=== PATIENT | male | born 1960 | race African-American/Black ===

== ENCOUNTER 2017-01-30 23:24 | Inpatient (IN) | payer OTHER ==
[~2017-01-30] VITALS: Ht 180.3 cm; Wt 79.4 kg
[2017-01-30] MEDS ORDERED: ZOLOFT50 MG ORAL (23:34)
[2017-01-30] MEDS ORDERED: ABILIFY10 MG ORAL (23:34)
[2017-01-30] MEDS ORDERED: ABILIFY15 MG ORAL (23:37)
[2017-01-30] MEDS ORDERED: HYDROCHLOROTH12.5 M2 ORAL (23:37)
[2017-01-30] MEDS ORDERED: Famotidine 20 MG/ 2ML VIAL IVP ONE (23:45)
[2017-01-30] MEDS ORDERED: Morphine Sulfate 2mg/ml Inj IVP ONE (23:45)
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
[2017-01-31] VITALS (10 sets, daily range): BP systolic 108–145; BP diastolic 54–100
[2017-01-31] LABS: MEAN CORPUSCULAR HEMOGLOBIN 30.2 PG (27.0-31.0); MEAN CORPUSCULAR HGB CONC 33.8 G/DL (32.0-36.0); MEAN CORPUSCULAR VOLUME 89 FL (80-99); PLATELET COUNT 309 K/UL (150-450); RED BLOOD COUNT 4.61 M/UL (4.70-6.10); RED CELL DISTRIBUTION WIDTH 10.6 % (11.6-14.8); WHITE BLOOD COUNT 11.2 K/UL (4.8-10.8)
[2017-01-31 00:06] LABS: INR 0.9 (0.9-1.1); PROTHROMBIN TIME 9.6 SEC (9.30-11.50)
[2017-01-31 00:07] LABS: TROPONIN I < 0.30 ng/mL (<=0.30)
[2017-01-31 00:11] LABS: ALANINE AMINOTRANSFERASE 15 U/L (3-41); ALBUMIN/GLOBULIN RATIO 1.3 (1.0-2.7); ANION GAP 18 (5-15); ASPARTATE AMINO TRANSFERASE 24 U/L (5-40); CALCIUM 9.2 mg/dL (8.6-10.2); CARBON DIOXIDE 24 mEQ/L (20-30); CHLORIDE 98 mEQ/L (98-107); CREATININE 1.1 mg/dL (0.7-1.2); GLOMERULAR FILTRATION RATE > 60 mL/min (>60); HEMOLYSIS 1; LIPASE 28 U/L (< 60); POTASSIUM 3.6 mEQ/L (3.4-4.9); SODIUM 140 mEQ/L (135-145); TOTAL PROTEIN 7.9 g/dL (6.6-8.7)
[2017-01-31 01:00] LABS: APPEARANCE,URINE CLEAR; KETONES,URINE NEGATIVE (NEGATIVE); LEUKOCYTE ESTERASE ,URINE 1+ (NEGATIVE); NITRITE,URINE NEGATIVE (NEGATIVE); PH,URINE 6 (4.5-8.0); PROTEIN,URINE 1+ (NEGATIVE); UROBILINOGEN,URINE 1 MG/DL (0.0-1.0)
[2017-01-31 01:25] LABS: RBC,URINE 0-2 /HPF (0 - 0); SQUAMOUS EPITHELIAL CELL,UR FEW /LPF (NONE/OCC); WBC,URINE 0-2 /HPF (0 - 0)
[2017-01-31] MEDS ORDERED: Azithromycin 500 MG in D5W 275 ML IVPB ONE (03:45)
[2017-01-31] MEDS ORDERED: Ipratropium 0.02% Inh Soln 2.5ml UD HHN ONE (03:45)
[2017-01-31] MEDS ORDERED: cefTRIAXone 1 GM in NS 55 ML IVPB ONE (03:45)
[2017-01-31] MEDS ORDERED: Albuterol ud Inhalation HHN ONE (03:45)
[2017-01-31] MEDS ORDERED: Ketorolac 30mg Inj IV ONE (04:00)
[2017-01-31] MEDS ORDERED: Azithromycin Inj IV ONE (04:47)
[2017-01-31] MEDS ORDERED: Norco 5mg/325mg tab ORAL PRN (11:00)
[2017-01-31] MEDS ORDERED: LORazepam 1mg tab ORAL PRN (11:00)
[2017-01-31] MEDS ORDERED: Acetaminophen 650 MG SUPP RECTAL PRN (11:00)
--- NOTE | 2017-01-31 11:42 | Diagnostic Imaging Report ---
Indication: Chest Pain Comparison: None A single view chest radiograph was obtained. Findings: No definite infiltrate or pulmonary vascular congestion identified. The heart is enlarged. The aorta is mildly enlarged consistent with atherosclerotic vascular disease. The bones are osteopenic. Impression: No acute disease
--- NOTE | 2017-01-31 11:42 | Diagnostic Imaging Report ---
Indication: Abdominal pain Comparison: None Single view of the abdomen obtained Findings: Bowel gas pattern is nonspecific. No mass, ectopic calcifications, or abnormal gas collections are identified. The bones are unremarkable. Impression: No acute findings
[2017-01-31] MEDS: Sertraline 50mg tab ORAL SCH (12:32)
--- NOTE | 2017-01-31 12:37 | Infectious Diseases Prog Note ---
Subjective Allergies: Coded Allergies: PENICILLINS (Verified Allergy, Unknown, 01/30/17) Objective Vital Signs Last 24 Hour Vital Signs Date Time Temp Pulse Resp B/P Pulse Ox O2 Delivery O2 Flow Rate FiO2 01/31/17 08:54 98.3 86 20 111/62 97 Room Air 01/31/17 08:00 98.3 86 20 111/62 97 Room Air 01/31/17 06:59 99.3 99 28 108/59 94 Room Air 01/31/17 06:22 99.3 99 28 108/59 94 Room Air 01/31/17 04:58 112 24 Room Air 01/31/17 04:55 102.5 112 28 129/54 94 Room Air 01/31/17 04:30 98.6 01/31/17 04:10 105 20 100 Room Air 01/31/17 04:00 99.8 112 28 142/66 97 Room Air 01/31/17 03:50 104 20 Room Air 01/31/17 03:50 104 20 100 Room Air 01/31/17 01:40 98.6 108 22 144/73 96 Room Air 01/31/17 00:20 98.6 01/31/17 00:19 98.6 116 22 126/72 92 Room Air 01/30/17 23:28 98.6 124 18 130/77 96 Room Air Height (Feet): 5 Height (Inches): 11.00 Weight (Pounds): 175 Laboratory Tests Test 01/30/17 23:39 01/31/17 00:30 01/31/17 04:03 White Blood Count 11.2 K/UL (4.8-10.8) H Red Blood Count 4.61 M/UL (4.70-6.10) L Hemoglobin 13.9 G/DL (14.2-18.0) L Hematocrit 41.2 % (42.0-52.0) L Mean Corpuscular Volume 89 FL (80-99) Mean Corpuscular Hemoglobin 30.2 PG (27.0-31.0) Mean Corpuscular Hemoglobin Concent 33.8 G/DL (32.0-36.0) Red Cell Distribution Width 10.6 % (11.6-14.8) L Platelet Count 309 K/UL (150-450) Mean Platelet Volume 6.0 FL (6.5-10.1) L Neutrophils (%) (Auto) % (45.0-75.0) Lymphocytes (%) (Auto) % (20.0-45.0) Monocytes (%) (Auto) % (1.0-10.0) Eosinophils (%) (Auto) % (0.0-3.0) Basophils (%) (Auto) % (0.0-2.0) Prothrombin Time 9.6 SEC (9.30-11.50) Prothromb Time International Ratio 0.9 (0.9-1.1) Activated Partial Thromboplast Time 27 SEC (23-33) Sodium Level 140 mEQ/L (135-145) Potassium Level 3.6 mEQ/L (3.4-4.9) Chloride Level 98 mEQ/L (98-107) Carbon Dioxide Level 24 mEQ/L (20-30) Anion Gap 18 (5-15) H Blood Urea Nitrogen 15 mg/dL (7-23) Creatinine 1.1 mg/dL (0.7-1.2) Estimat Glomerular Filtration Rate > 60 mL/min (>60) Glucose Level 111 mg/dL (74-106) H Calcium Level 9.2 mg/dL (8.6-10.2) Total Bilirubin 0.8 mg/dL (0.0-1.2) Aspartate Amino Transf (AST/SGOT) 24 U/L (5-40) Alanine Aminotransferase (ALT/SGPT) 15 U/L (3-41) Alkaline Phosphatase 75 U/L (40-129) Troponin I < 0.30 ng/mL (<=0.30) Total Protein 7.9 g/dL (6.6-8.7) Albumin 4.5 g/dL (3.5-5.2) Globulin 3.4 g/dL Albumin/Globulin Ratio 1.3 (1.0-2.7) Lipase 28 U/L (< 60) Serum Alcohol 62 mg/dL Urine Color Yellow Urine Appearance Clear Urine pH 6 (4.5-8.0) Urine Specific [place] 1.010 (1.005-1.035) Urine Protein 1+ (NEGATIVE) H Urine Glucose (UA) Negative (NEGATIVE) Urine Ketones Negative (NEGATIVE) Urine Occult Blood 2+ (NEGATIVE) H Urine Nitrite Negative (NEGATIVE) Urine Bilirubin Negative (NEGATIVE) Urine Urobilinogen 1 MG/DL (0.0-1.0) H Urine Leukocyte Esterase 1+ (NEGATIVE) H Urine RBC 0-2 /HPF (0 - 0) H Urine WBC 0-2 /HPF (0 - 0) Urine Squamous Epithelial Cells Few /LPF (NONE/OCC) Urine Bacteria None /HPF (NONE) Lactic Acid Level 1.50 mmol/L (0.66-2.22) Current Medications Medications (Trade) Dose Ordered Sig/Pedro Luis Route PRN Reason Start Time Stop Time Status Last Admin Dose Admin Acetaminophen (Tylenol) 650 mg Q4H PRN RECTAL T>100.5 01/31/17 11:00 03/02/17 10:59 Acetaminophen/ Hydrocodone Bitart 1 tab 1 tab Q4H PRN ORAL Moderate Pain (Pain Scale 4-6) 01/31/17 11:00 02/07/17 10:59 Albuterol/ Ipratropium (DuoNeb 0.5-3(2.5)mg/3ml) 3 ml Q4H PRN HHN Shortness of Breath 01/31/17 11:00 02/05/17 10:59 Aripiprazole (Abilify) 15 mg DAILY ORAL 01/31/17 12:00 03/02/17 11:59 Azithromycin/ Dextrose (Zithromax/D5W) 275 ml @ 275 mls/hr Q24HRS IV 02/01/17 06:00 02/07/17 06:59 Ceftriaxone Sodium 1 gm/ Dextrose 55 ml @ 110 mls/hr Q24H IVPB 02/01/17 06:00 02/08/17 05:59 Dextrose (Dextrose 50%) STAT PRN IV Hypoglycemia 01/31/17 11:00 03/02/17 10:59 Heparin Sodium (Porcine) (Heparin 5000 units/ml) 5,000 units EVERY 12 HOURS SUBQ 01/31/17 21:00 03/02/17 20:59 Hydrochlorothiazide (Hydrodiuril) 12.5 mg DAILY ORAL 01/31/17 11:00 03/02/17 10:59 01/31/17 12:32 Lorazepam (Ativan) 1 mg Q4H PRN ORAL For Anxiety 01/31/17 11:00 02/07/17 10:59 Morphine Sulfate (Morphine Sulfate) 2 mg Q4H PRN IVP Severe Pain (Pain Scale 7-10) 01/31/17 11:00 02/07/17 10:59 Ondansetron HCl (Zofran) 4 mg Q6H PRN IVP Nausea & Vomiting 01/31/17 11:00 03/02/17 10:59 Sertraline HCl (Zoloft) 50 mg DAILY ORAL 01/31/17 11:00 03/02/17 10:59 01/31/17 12:32 Iliana Drake M.D. Jan 31, 2017 12:37
--- NOTE | 2017-01-31 13:40 | Infectious Diseases Prog Note ---
Assessment/Plan Problems: (1) CAP (community acquired pneumonia) Assessment & Plan: continue ceftriaxon and zithromax, send sputum culture, monitor CXR, avoid smoking (2) UTI (urinary tract infection) Assessment & Plan: on ceftriaxon, send urine culture (3) Vomiting Assessment & Plan: colitis VS gastroenteritis, continue supportive care, and anti nausea meds (4) Abdominal pain Assessment & Plan: consult GI, consider CT abdomen to rule out acute pathology (5) COPD (chronic obstructive pulmonary disease) with acute bronchitis Assessment & Plan: due to chronic smoking, recommend smoking cessation and nebulizer treatment , and PFT as an outpatient Subjective Allergies: Coded Allergies: PENICILLINS (Verified Allergy, Unknown, 01/30/17) Objective Vital Signs Last 24 Hour Vital Signs Date Time Temp Pulse Resp B/P Pulse Ox O2 Delivery O2 Flow Rate FiO2 01/31/17 08:54 98.3 86 20 111/62 97 Room Air 01/31/17 08:00 98.3 86 20 111/62 97 Room Air 01/31/17 06:59 99.3 99 28 108/59 94 Room Air 01/31/17 06:22 99.3 99 28 108/59 94 Room Air 01/31/17 04:58 112 24 Room Air 01/31/17 04:55 102.5 112 28 129/54 94 Room Air 01/31/17 04:30 98.6 01/31/17 04:10 105 20 100 Room Air 01/31/17 04:00 99.8 112 28 142/66 97 Room Air 01/31/17 03:50 104 20 Room Air 01/31/17 03:50 104 20 100 Room Air 01/31/17 01:40 98.6 108 22 144/73 96 Room Air 01/31/17 00:20 98.6 01/31/17 00:19 98.6 116 22 126/72 92 Room Air 01/30/17 23:28 98.6 124 18 130/77 96 Room Air Height (Feet): 5 Height (Inches): 11.00 Weight (Pounds): 175 Laboratory Tests Test 01/30/17 23:39 01/31/17 00:30 01/31/17 04:03 White Blood Count 11.2 K/UL (4.8-10.8) H Red Blood Count 4.61 M/UL (4.70-6.10) L Hemoglobin 13.9 G/DL (14.2-18.0) L Hematocrit 41.2 % (42.0-52.0) L Mean Corpuscular Volume 89 FL (80-99) Mean Corpuscular Hemoglobin 30.2 PG (27.0-31.0) Mean Corpuscular Hemoglobin Concent 33.8 G/DL (32.0-36.0) Red Cell Distribution Width 10.6 % (11.6-14.8) L Platelet Count 309 K/UL (150-450) Mean Platelet Volume 6.0 FL (6.5-10.1) L Neutrophils (%) (Auto) % (45.0-75.0) Lymphocytes (%) (Auto) % (20.0-45.0) Monocytes (%) (Auto) % (1.0-10.0) Eosinophils (%) (Auto) % (0.0-3.0) Basophils (%) (Auto) % (0.0-2.0) Prothrombin Time 9.6 SEC (9.30-11.50) Prothromb Time International Ratio 0.9 (0.9-1.1) Activated Partial Thromboplast Time 27 SEC (23-33) Sodium Level 140 mEQ/L (135-145) Potassium Level 3.6 mEQ/L (3.4-4.9) Chloride Level 98 mEQ/L (98-107) Carbon Dioxide Level 24 mEQ/L (20-30) Anion Gap 18 (5-15) H Blood Urea Nitrogen 15 mg/dL (7-23) Creatinine 1.1 mg/dL (0.7-1.2) Estimat Glomerular Filtration Rate > 60 mL/min (>60) Glucose Level 111 mg/dL (74-106) H Calcium Level 9.2 mg/dL (8.6-10.2) Total Bilirubin 0.8 mg/dL (0.0-1.2) Aspartate Amino Transf (AST/SGOT) 24 U/L (5-40) Alanine Aminotransferase (ALT/SGPT) 15 U/L (3-41) Alkaline Phosphatase 75 U/L (40-129) Troponin I < 0.30 ng/mL (<=0.30) Total Protein 7.9 g/dL (6.6-8.7) Albumin 4.5 g/dL (3.5-5.2) Globulin 3.4 g/dL Albumin/Globulin Ratio 1.3 (1.0-2.7) Lipase 28 U/L (< 60) Serum Alcohol 62 mg/dL Urine Color Yellow Urine Appearance Clear Urine pH 6 (4.5-8.0) Urine Specific [place] 1.010 (1.005-1.035) Urine Protein 1+ (NEGATIVE) H Urine Glucose (UA) Negative (NEGATIVE) Urine Ketones Negative (NEGATIVE) Urine Occult Blood 2+ (NEGATIVE) H Urine Nitrite Negative (NEGATIVE) Urine Bilirubin Negative (NEGATIVE) Urine Urobilinogen 1 MG/DL (0.0-1.0) H Urine Leukocyte Esterase 1+ (NEGATIVE) H Urine RBC 0-2 /HPF (0 - 0) H Urine WBC 0-2 /HPF (0 - 0) Urine Squamous Epithelial Cells Few /LPF (NONE/OCC) Urine Bacteria None /HPF (NONE) Lactic Acid Level 1.50 mmol/L (0.66-2.22) Current Medications Medications (Trade) Dose Ordered Sig/Pedro Luis Route PRN Reason Start Time Stop Time Status Last Admin Dose Admin Acetaminophen (Tylenol) 650 mg Q4H PRN RECTAL T>100.5 01/31/17 11:00 03/02/17 10:59 Acetaminophen/ Hydrocodone Bitart 1 tab 1 tab Q4H PRN ORAL Moderate Pain (Pain Scale 4-6) 01/31/17 11:00 02/07/17 10:59 Albuterol/ Ipratropium (DuoNeb 0.5-3(2.5)mg/3ml) 3 ml Q4H PRN HHN Shortness of Breath 01/31/17 11:00 02/05/17 10:59 Aripiprazole (Abilify) 15 mg DAILY ORAL 01/31/17 12:00 03/02/17 11:59 Azithromycin/ Dextrose (Zithromax/D5W) 275 ml @ 275 mls/hr Q24HRS IV 02/01/17 06:00 02/07/17 06:59 Ceftriaxone Sodium 1 gm/ Dextrose 55 ml @ 110 mls/hr Q24H IVPB 02/01/17 06:00 02/08/17 05:59 Dextrose (Dextrose 50%) STAT PRN IV Hypoglycemia 01/31/17 11:00 03/02/17 10:59 Heparin Sodium (Porcine) (Heparin 5000 units/ml) 5,000 units EVERY 12 HOURS SUBQ 01/31/17 21:00 03/02/17 20:59 Hydrochlorothiazide (Hydrodiuril) 12.5 mg DAILY ORAL 01/31/17 11:00 03/02/17 10:59 01/31/17 12:32 Lorazepam (Ativan) 1 mg Q4H PRN ORAL For Anxiety 01/31/17 11:00 02/07/17 10:59 Metronidazole (Flagyl) 500 mg Q8HR ORAL 01/31/17 14:00 02/07/17 13:59 Morphine Sulfate (Morphine Sulfate) 2 mg Q4H PRN IVP Severe Pain (Pain Scale 7-10) 01/31/17 11:00 02/07/17 10:59 Ondansetron HCl (Zofran) 4 mg Q6H PRN IVP Nausea & Vomiting 01/31/17 11:00 03/02/17 10:59 Sertraline HCl (Zoloft) 50 mg DAILY ORAL 01/31/17 11:00 03/02/17 10:59 01/31/17 12:32 Iliana Drake M.D. Jan 31, 2017 13:40
[2017-01-31] MEDS ORDERED: metroNIDAZOLE 500mg tab ORAL SCH (14:00)
--- NOTE | 2017-01-31 19:58 | Consultation ---
DATE OF CONSULTATION: 01/31/2017 CONSULTING PHYSICIAN: Jonny Lovelace M.D. HISTORY OF PRESENT ILLNESS: This is a 56-year-old male, who came to the hospital with nausea and vomiting. He states that he has been having chest pain and chest congestion. He also reports a cough. Denies any fevers or chills. He was seen and was worked up in the hospital. ALLERGIES: Penicillin. PAST MEDICAL HISTORY: Hypertension and PTSD. REVIEW OF SYSTEMS: Denies any headaches, hematemesis, melena, hematochezia, night sweats, or weight loss. PHYSICAL EXAMINATION: GENERAL: Examination reveals a 56-year-old male. VITAL SIGNS: Blood pressure 110/60, heart rate 84, respiratory rate 20, he is afebrile, and O2 saturation 98% on room air. HEENT: Unremarkable. CHEST: Clear breath sounds bilaterally. ABDOMEN: Soft. NEUROLOGIC: Nonfocal. LABORATORY DATA: White count 11.2, hemoglobin 13. Chemistries are normal. Glucose 111. Coags are negative. Urinalysis shows few WBC. Toxicology is notable for elevated serum alcohol. X-ray of chest per ER physician report is unremarkable. I have reviewed the x-ray myself and I find no evidence of any acute pathology. IMPRESSION: 1. Alcohol intoxication. 2. Emesis, likely secondary to gastritis. 3. No acute respiratory issues. DISCUSSION: The patient is seen and evaluated. At this time, he is doing well from medical standpoint. Respiratory status is stable. We will continue to follow as needed. Thank you for consultation. Jonny Lovelace M.D. DR: ROBERT JOB#: [id number] CC:
--- NOTE | 2017-01-31 20:30 | History and Physical ---
History of Present Illness General Date patient seen: Jan 31, 2017 Reason for Hospitalization: Abdominal Pain Present Illness HPI 56 y/o with PMH for psychiatric disorder and HTN who presented to the ED c/o shortness of breath for 4-5 days. He also c/o associated nonproductive cough, chills, and vomiting. No other sick contacts at home and no recent travel. In the ED, CXR was suspicious for RML infiltrate and was admitted for pneumonia. Allergies: Coded Allergies: PENICILLINS (Verified Allergy, Unknown, 01/30/17) Medication History Scheduled Aripiprazole* (Abilify*), 15 MG ORAL DAILY, (Reported) Hydrochlorothiazide* (Hydrochlorothiazide*), 12.5 MG ORAL DAILY, (Reported) Sertraline Hcl* (Zoloft*), 50 MG ORAL DAILY, (Reported) Patient History History Provided By: Patient Healthcare decision maker Resuscitation status Advanced Directive on File Past Medical/Surgical History Past Medical/Surgical History: (1) HTN (hypertension) (2) Psychiatric disorder Social History Social History: (1) Smoker Review of Systems All Other Systems: negative except mentioned in HPI Physical Exam General Appearance: WD/WN, no apparent distress HEENT: normocephalic, atraumatic Neck: supple Respiratory/Chest: decreased breath sounds, expiratory wheezing Cardiovascular/Chest: normal rate, regular rhythm Abdomen: non tender, soft Extremities: no edema Neurologic: alert, oriented x 3 Last 24 Hour Vital Signs Date Time Temp Pulse Resp B/P Pulse Ox O2 Delivery O2 Flow Rate FiO2 01/31/17 12:00 98.4 89 19 117/70 98 Room Air 01/31/17 08:54 98.3 86 20 111/62 97 Room Air 01/31/17 08:00 98.3 86 20 111/62 97 Room Air 01/31/17 06:59 99.3 99 28 108/59 94 Room Air 01/31/17 06:22 99.3 99 28 108/59 94 Room Air 01/31/17 04:58 112 24 Room Air 01/31/17 04:55 102.5 112 28 129/54 94 Room Air 01/31/17 04:30 98.6 01/31/17 04:10 105 20 100 Room Air 01/31/17 04:00 99.8 112 28 142/66 97 Room Air 01/31/17 03:50 104 20 Room Air 01/31/17 03:50 104 20 100 Room Air 01/31/17 01:40 98.6 108 22 144/73 96 Room Air 01/31/17 00:20 98.6 01/31/17 00:19 98.6 116 22 126/72 92 Room Air 01/30/17 23:28 98.6 124 18 130/77 96 Room Air Intake and Output 01/30/17 01/31/17 19:00 07:00 Intake Total 1330 ml Output Total 200 ml Balance 1130 ml Intake Oral 0 ml IV Total 1330 ml Output Urine Total 200 ml Laboratory Tests Test 01/30/17 23:39 01/31/17 00:30 01/31/17 04:03 White Blood Count 11.2 K/UL (4.8-10.8) H Red Blood Count 4.61 M/UL (4.70-6.10) L Hemoglobin 13.9 G/DL (14.2-18.0) L Hematocrit 41.2 % (42.0-52.0) L Mean Corpuscular Volume 89 FL (80-99) Mean Corpuscular Hemoglobin 30.2 PG (27.0-31.0) Mean Corpuscular Hemoglobin Concent 33.8 G/DL (32.0-36.0) Red Cell Distribution Width 10.6 % (11.6-14.8) L Platelet Count 309 K/UL (150-450) Mean Platelet Volume 6.0 FL (6.5-10.1) L Neutrophils (%) (Auto) % (45.0-75.0) Lymphocytes (%) (Auto) % (20.0-45.0) Monocytes (%) (Auto) % (1.0-10.0) Eosinophils (%) (Auto) % (0.0-3.0) Basophils (%) (Auto) % (0.0-2.0) Prothrombin Time 9.6 SEC (9.30-11.50) Prothromb Time International Ratio 0.9 (0.9-1.1) Activated Partial Thromboplast Time 27 SEC (23-33) Sodium Level 140 mEQ/L (135-145) Potassium Level 3.6 mEQ/L (3.4-4.9) Chloride Level 98 mEQ/L (98-107) Carbon Dioxide Level 24 mEQ/L (20-30) Anion Gap 18 (5-15) H Blood Urea Nitrogen 15 mg/dL (7-23) Creatinine 1.1 mg/dL (0.7-1.2) Estimat Glomerular Filtration Rate > 60 mL/min (>60) Glucose Level 111 mg/dL (74-106) H Calcium Level 9.2 mg/dL (8.6-10.2) Total Bilirubin 0.8 mg/dL (0.0-1.2) Aspartate Amino Transf (AST/SGOT) 24 U/L (5-40) Alanine Aminotransferase (ALT/SGPT) 15 U/L (3-41) Alkaline Phosphatase 75 U/L (40-129) Troponin I < 0.30 ng/mL (<=0.30) Total Protein 7.9 g/dL (6.6-8.7) Albumin 4.5 g/dL (3.5-5.2) Globulin 3.4 g/dL Albumin/Globulin Ratio 1.3 (1.0-2.7) Lipase 28 U/L (< 60) Serum Alcohol 62 mg/dL Urine Color Yellow Urine Appearance Clear Urine pH 6 (4.5-8.0) Urine Specific [place] 1.010 (1.005-1.035) Urine Protein 1+ (NEGATIVE) H Urine Glucose (UA) Negative (NEGATIVE) Urine Ketones Negative (NEGATIVE) Urine Occult Blood 2+ (NEGATIVE) H Urine Nitrite Negative (NEGATIVE) Urine Bilirubin Negative (NEGATIVE) Urine Urobilinogen 1 MG/DL (0.0-1.0) H Urine Leukocyte Esterase 1+ (NEGATIVE) H Urine RBC 0-2 /HPF (0 - 0) H Urine WBC 0-2 /HPF (0 - 0) Urine Squamous Epithelial Cells Few /LPF (NONE/OCC) Urine Bacteria None /HPF (NONE) Lactic Acid Level 1.50 mmol/L (0.66-2.22) Height (Feet): 5 Height (Inches): 11.00 Weight (Pounds): 175 Medications Current Medications Medications (Trade) Dose Ordered Sig/Pedro Luis Route PRN Reason Start Time Stop Time Status Last Admin Dose Admin Acetaminophen (Tylenol) 650 mg Q4H PRN RECTAL T>100.5 01/31/17 11:00 03/02/17 10:59 Acetaminophen/ Hydrocodone Bitart 1 tab 1 tab Q4H PRN ORAL Moderate Pain (Pain Scale 4-6) 01/31/17 11:00 02/07/17 10:59 Albuterol/ Ipratropium (DuoNeb 0.5-3(2.5)mg/3ml) 3 ml Q4H PRN HHN Shortness of Breath 01/31/17 11:00 02/05/17 10:59 Aripiprazole (Abilify) 15 mg DAILY ORAL 01/31/17 12:00 03/02/17 11:59 01/31/17 13:50 Azithromycin/ Dextrose (Zithromax/D5W) 275 ml @ 275 mls/hr Q24HRS IV 02/01/17 06:00 02/07/17 06:59 Ceftriaxone Sodium 1 gm/ Dextrose 55 ml @ 110 mls/hr Q24H IVPB 02/01/17 06:00 02/08/17 05:59 Dextrose (Dextrose 50%) STAT PRN IV Hypoglycemia 01/31/17 11:00 03/02/17 10:59 Heparin Sodium (Porcine) (Heparin 5000 units/ml) 5,000 units EVERY 12 HOURS SUBQ 01/31/17 21:00 03/02/17 20:59 Hydrochlorothiazide (Hydrodiuril) 12.5 mg DAILY ORAL 01/31/17 11:00 03/02/17 10:59 01/31/17 12:32 Lorazepam (Ativan) 1 mg Q4H PRN ORAL For Anxiety 01/31/17 11:00 02/07/17 10:59 Morphine Sulfate (Morphine Sulfate) 2 mg Q4H PRN IVP Severe Pain (Pain Scale 7-10) 01/31/17 11:00 02/07/17 10:59 Ondansetron HCl (Zofran) 4 mg Q6H PRN IVP Nausea & Vomiting 01/31/17 11:00 03/02/17 10:59 Sertraline HCl (Zoloft) 50 mg DAILY ORAL 01/31/17 11:00 03/02/17 10:59 01/31/17 12:32 Assessment/Plan Problem List: (1) COPD (chronic obstructive pulmonary disease) with acute bronchitis ICD Codes: J44.0 - Chronic obstructive pulmonary disease with acute lower respiratory infection SNOMED: 301896378081560 (2) Vomiting ICD Codes: R11.10 - Vomiting, unspecified SNOMED: 236289067 (3) Abdominal pain ICD Codes: R10.9 - Unspecified abdominal pain SNOMED: 83900726 (4) HTN (hypertension) ICD Codes: I10 - Essential (primary) hypertension SNOMED: 48304414 (5) Psychiatric disorder ICD Codes: F99 - Mental disorder, not otherwise specified SNOMED: 87154029, [id number] Assessment/Plan Dr. Adams called for pulmonary. Dr. Drake for ID. Empiric abx with azithro and rocephin. [facility] prn. Resume home meds. D/w Dr. Yusuf. CHRISTIANO SOSA Jan 31, 2017 20:30
--- NOTE | 2017-01-31 20:58 | Consultation ---
DATE OF CONSULTATION: 01/31/2017 INFECTIOUS DISEASES CONSULTATION CONSULTING PHYSICIAN: Iliana Drake M.D. REQUESTING PHYSICIAN: Meet Yusuf M.D. REASON FOR CONSULTATION: Pneumonia. Recommendation for antibiotics therapy with allergy to penicillin. HISTORY OF PRESENT ILLNESS: The patient is a 56-year-old male with past medical history of hypertension and posttraumatic stress disorder, who was brought into the hospital for cough productive of brownish phlegm for the last three days. The patient had fever and chills. Denied any recent travel or sick contacts. He had nausea and vomited for couple of times. Denied any diarrhea or blood in the stool. The patient had temperature of 98.6 with a white count of 11.2, in the emergency room. Chest x-ray showed no acute pathology. The patient was admitted to the hospital and started on ceftriaxone and Zithromax. I was consulted by the primary provider for antibiotics recommendation. PAST MEDICAL HISTORY: Significant for hypertension and posttraumatic stress disorder. PAST SURGICAL HISTORY: Negative. MEDICATIONS: He is on ceftriaxone and azithromycin. For the rest of his medications please refer to MAR. SOCIAL HISTORY: He is unemployed. He lives with his . He smoked tobacco for 10 years, half packet per day. No alcohol or drugs. FAMILY HISTORY: Negative for recurrent infection or immunocompromised condition. REVIEW OF SYSTEMS: A 12-point of system reviewed were all negative apart from the one I mentioned above in my History and Physical. PHYSICAL EXAMINATION: VITAL SIGNS: Temperature of 98.3 degrees, pulse 86, respirations 20, blood pressure 111/62, and pulse oximetry 97% on room air. GENERAL: The patient is a middle-aged male, up in bed, coughing and wheezing, not in acute distress. HEENT: Normocephalic and atraumatic. Pupils are reactive to light. Moist oral mucosa. No exudate. NECK: Supple. No lymphadenopathy. CARDIOVASCULAR: Regular rate and rhythm. No murmur. LUNGS: He had crackles and wheezing on both sides of his lungs with diminished breathing sounds. ABDOMEN: Soft, nontender, and nondistended. EXTREMITIES: No edema or cyanosis. LABORATORY DATA: White count of 11.2, hemoglobin 13.9, and platelet count of 309,000. BUN of 15 and creatinine of 1.1. AST of 24 and ALT of 15. Urinalysis showed +1 leukocyte esterase and WBCs 0 to 2. IMAGING STUDIES: Chest x-ray showed no acute disease. Abdominal x-ray showed no acute disease. ASSESSMENT AND PLAN: 1. Community-acquired pneumonia. The patient will be continued on ceftriaxone and Zithromax. At this point, we will monitor chest x-ray and send sputum for culture. 2. Urinary tract infection. The patient is already on ceftriaxone. We will send urine culture. 3. Vomiting suspect due to #1, improved. Continue supportive care and nausea medicine. 4. Chronic obstructive pulmonary disease suspect due to chronic smoking with acute exacerbation. Recommend nebulizer treatment and pulmonary function test as an outpatient. 5. Abdominal pain suspect muscle strain due to recurrent cough. Continue pain management. Consider CT abdomen, if no improvement. Iliana Drake M.D. DR: WARD JOB#: [id number] CC:
[2017-01-31] MEDS: DuoNeb 0.5-3(2.5)mg/3ml neb HHN PRN (21:09)
[2017-01-31] MEDS: Heparin 5000 units/ml inj SUBQ SCH (22:09)
[2017-01-31] MEDS: Morphine Sulfate 2mg/ml Inj IVP PRN (22:10)
[2017-02-01] VITALS: BP 129/74
[2017-02-01] MEDS: Azithromycin 250 MG in D5W 275 ML IV SCH (06:18)
[2017-02-01] MEDS: cefTRIAXone 1 GM in D5W 55 ML IVPB SCH (06:18)
[2017-02-01 08:00] VITALS: BP 121/77
[2017-02-01 08:09] LABS: BASOPHILS % (AUTO) 0.6 % (0.0-2.0); EOSINOPHILS % (AUTO) 2.8 % (0.0-3.0); LYMPHOCYTES % (AUTO) 16.7 % (20.0-45.0); MEAN CORPUSCULAR HEMOGLOBIN 29.8 PG (27.0-31.0); MEAN CORPUSCULAR HGB CONC 33.1 G/DL (32.0-36.0); MEAN CORPUSCULAR VOLUME 90 FL (80-99); MEAN PLATELET VOLUME 6.1 FL (6.5-10.1); MONOCYTES % (AUTO) 6.5 % (1.0-10.0); NEUTROPHILS % (AUTO) 73.4 % (45.0-75.0); PLATELET COUNT 304 K/UL (150-450); RED BLOOD COUNT 4.33 M/UL (4.70-6.10); RED CELL DISTRIBUTION WIDTH 11.2 % (11.6-14.8); WHITE BLOOD COUNT 9.6 K/UL (4.8-10.8)
[2017-02-01 08:11] LABS: ANION GAP 12 (5-15); CALCIUM 8.6 mg/dL (8.6-10.2); CARBON DIOXIDE 25 mEQ/L (20-30); CHLORIDE 101 mEQ/L (98-107); CREATININE 0.8 mg/dL (0.7-1.2); GLOMERULAR FILTRATION RATE > 60 mL/min (>60); HEMOLYSIS 4; POTASSIUM 3.7 mEQ/L (3.4-4.9); SODIUM 138 mEQ/L (135-145)
[2017-02-01] MEDS: Sertraline 50mg tab ORAL SCH (08:22)
[2017-02-01] MEDS: Heparin 5000 units/ml inj SUBQ SCH ×2 (08:31→21:12)
[2017-02-01 12:00] VITALS: BP 127/92
[2017-02-01] MEDS: DuoNeb 0.5-3(2.5)mg/3ml neb HHN PRN (16:07)
[2017-02-01 16:26] VITALS: BP 134/88
[2017-02-01 20:00] VITALS: BP 125/79
--- NOTE | 2017-02-01 20:23 | Nephrology Progress Note ---
Assessment/Plan Problem List: (1) COPD (chronic obstructive pulmonary disease) with acute bronchitis (2) Psychiatric disorder (3) HTN (hypertension) (4) Abdominal pain (5) Vomiting Assessment: resolved. Plan d/c plan for am if stable. cont abx and neb tx. pulm and ID following. Subjective Subjective sob better. Objective Objective Last 24 Hour Vital Signs Date Time Temp Pulse Resp B/P Pulse Ox O2 Delivery O2 Flow Rate FiO2 02/01/17 16:26 97.9 79 18 134/88 98 Room Air 02/01/17 16:17 105 20 100 Room Air 02/01/17 16:07 91 18 98 Room Air 21 02/01/17 12:00 97.5 87 18 127/92 98 Room Air 02/01/17 08:00 97.9 74 18 121/77 100 Room Air 02/01/17 07:35 83 18 Room Air 21 02/01/17 00:00 98.1 81 19 129/74 98 Room Air 01/31/17 22:40 98.4 01/31/17 21:06 91 18 98 Room Air 21 01/31/17 20:45 86 18 Room Air 21 Intake and Output 01/31/17 02/01/17 19:00 07:00 Intake Total 360 ml 240 ml Output Total 350 ml Balance 360 ml -110 ml Intake Oral 360 ml 240 ml Output Urine Total 350 ml # Voids 2 Laboratory Tests 02/01/17 06:35: White Blood Count 9.6, Red Blood Count 4.33L, Hemoglobin 12.9L, Hematocrit 39.0L , Mean Corpuscular Volume 90, Mean Corpuscular Hemoglobin 29.8, Mean Corpuscular Hemoglobin Concent 33.1, Red Cell Distribution Width 11.2L, Platelet Count 304, Mean Platelet Volume 6.1L, Neutrophils (%) (Auto) 73.4, Lymphocytes (%) (Auto) 16.7L, Monocytes (%) (Auto) 6.5, Eosinophils (%) (Auto) 2.8, Basophils (%) (Auto) 0.6, Sodium Level 138, Potassium Level 3.7, Chloride Level 101, Carbon Dioxide Level 25, Anion Gap 12, Blood Urea Nitrogen 11, Creatinine 0.8, Estimat Glomerular Filtration Rate > 60, Glucose Level 112H, Calcium Level 8.6 Height (Feet): 5 Height (Inches): 11.00 Weight (Pounds): 175 General Appearance: no apparent distress Cardiovascular: normal rate, regular rhythm Respiratory/Chest: decreased breath sounds, expiratory wheezing Abdomen: non tender, soft Extremities: non-pitting Neurologic: alert, oriented x 3 KRYSTA ANDERS Feb 01, 2017 20:23
--- NOTE | 2017-02-01 20:58 | Pulmonology Progress Note ---
Assessment/Plan Assessment/Plan 1. Alcohol intoxication. 2. Emesis, likely secondary to gastritis. 3. No acute respiratory issues. DISCUSSION: The patient is seen and evaluated. At this time, he is doing well from medical standpoint. Respiratory status is stable. We will continue to follow as needed. Subjective Interval Events: No new problems Constitutional: Reports: no symptoms HEENT: Repors: no symptoms Respiratory: Reports: no symptoms Cardiovascular: Reports: no symptoms Allergies: Coded Allergies: PENICILLINS (Verified Allergy, Unknown, 01/30/17) Objective Last 24 Hour Vital Signs Date Time Temp Pulse Resp B/P Pulse Ox O2 Delivery O2 Flow Rate FiO2 02/01/17 16:26 97.9 79 18 134/88 98 Room Air 02/01/17 16:17 105 20 100 Room Air 02/01/17 16:07 91 18 98 Room Air 21 02/01/17 12:00 97.5 87 18 127/92 98 Room Air 02/01/17 08:00 97.9 74 18 121/77 100 Room Air 02/01/17 07:35 83 18 Room Air 21 02/01/17 00:00 98.1 81 19 129/74 98 Room Air 01/31/17 22:40 98.4 01/31/17 21:06 91 18 98 Room Air 21 Intake and Output 01/31/17 02/01/17 19:00 07:00 Intake Total 360 ml 240 ml Output Total 350 ml Balance 360 ml -110 ml Intake Oral 360 ml 240 ml Output Urine Total 350 ml # Voids 2 HEENT: normocephalic Respiratory/Chest: chest wall non-tender Cardiovascular: normal peripheral pulses Microbiology Date/Time Source Procedure Growth Status 01/31/17 04:03 Blood Blood Culture - Preliminary NO GROWTH AFTER 24 HOURS Resulted 01/31/17 03:40 Blood Blood Culture - Preliminary NO GROWTH AFTER 24 HOURS Resulted Laboratory Tests 02/01/17 06:35: White Blood Count 9.6, Red Blood Count 4.33L, Hemoglobin 12.9L, Hematocrit 39.0L , Mean Corpuscular Volume 90, Mean Corpuscular Hemoglobin 29.8, Mean Corpuscular Hemoglobin Concent 33.1, Red Cell Distribution Width 11.2L, Platelet Count 304, Mean Platelet Volume 6.1L, Neutrophils (%) (Auto) 73.4, Lymphocytes (%) (Auto) 16.7L, Monocytes (%) (Auto) 6.5, Eosinophils (%) (Auto) 2.8, Basophils (%) (Auto) 0.6, Sodium Level 138, Potassium Level 3.7, Chloride Level 101, Carbon Dioxide Level 25, Anion Gap 12, Blood Urea Nitrogen 11, Creatinine 0.8, Estimat Glomerular Filtration Rate > 60, Glucose Level 112H, Calcium Level 8.6 Current Medications Medications (Trade) Dose Ordered Sig/Pedro Luis Route PRN Reason Start Time Stop Time Status Last Admin Dose Admin Acetaminophen (Tylenol) 650 mg Q4H PRN RECTAL T>100.5 01/31/17 11:00 03/02/17 10:59 Acetaminophen/ Hydrocodone Bitart 1 tab 1 tab Q4H PRN ORAL Moderate Pain (Pain Scale 4-6) 01/31/17 11:00 02/07/17 10:59 Albuterol/ Ipratropium (DuoNeb 0.5-3(2.5)mg/3ml) 3 ml Q4H PRN HHN Shortness of Breath 01/31/17 11:00 02/05/17 10:59 02/01/17 16:07 Aripiprazole (Abilify) 15 mg DAILY ORAL 01/31/17 12:00 03/02/17 11:59 02/01/17 08:22 Azithromycin/ Dextrose (Zithromax/D5W) 275 ml @ 275 mls/hr Q24HRS IV 02/01/17 06:00 02/07/17 06:59 02/01/17 06:18 Ceftriaxone Sodium 1 gm/ Dextrose 55 ml @ 110 mls/hr Q24H IVPB 02/01/17 06:00 02/08/17 05:59 02/01/17 06:18 Dextrose (Dextrose 50%) STAT PRN IV Hypoglycemia 01/31/17 11:00 03/02/17 10:59 Heparin Sodium (Porcine) (Heparin 5000 units/ml) 5,000 units EVERY 12 HOURS SUBQ 01/31/17 21:00 03/02/17 20:59 02/01/17 08:31 Hydrochlorothiazide (Hydrodiuril) 12.5 mg DAILY ORAL 01/31/17 11:00 03/02/17 10:59 02/01/17 08:22 Lorazepam (Ativan) 1 mg Q4H PRN ORAL For Anxiety 01/31/17 11:00 02/07/17 10:59 02/01/17 01:38 Morphine Sulfate (Morphine Sulfate) 2 mg Q4H PRN IVP Severe Pain (Pain Scale 7-10) 01/31/17 11:00 02/07/17 10:59 01/31/17 22:10 Ondansetron HCl (Zofran) 4 mg Q6H PRN IVP Nausea & Vomiting 01/31/17 11:00 03/02/17 10:59 Sertraline HCl (Zoloft) 50 mg DAILY ORAL 01/31/17 11:00 03/02/17 10:59 02/01/17 08:22 Jonny Lovelace MD Feb 01, 2017 20:58
[2017-02-01] MEDS: Morphine Sulfate 2mg/ml Inj IVP PRN (21:15)
[2017-02-02 00:38] VITALS: BP 136/81
[2017-02-02 04:00] VITALS: BP 13/89
[2017-02-02] MEDS: Azithromycin 250 MG in D5W 275 ML IV SCH (05:28)
[2017-02-02] MEDS: cefTRIAXone 1 GM in D5W 55 ML IVPB SCH (05:28)
[2017-02-02 08:00] VITALS: BP 130/78
[2017-02-02] MEDS: Sertraline 50mg tab ORAL SCH (08:30)
[2017-02-02] MEDS: Heparin 5000 units/ml inj SUBQ SCH (08:38)
--- NOTE | 2017-02-02 08:43 | Pulmonology Progress Note ---
Assessment/Plan Assessment/Plan 1. Alcohol intoxication. 2. Emesis, likely secondary to gastritis. 3. No acute respiratory issues. DISCUSSION: Doing well from medical standpoint. Respiratory status is stable. We will continue to follow as needed. Subjective Interval Events: No new events Constitutional: Reports: no symptoms HEENT: Repors: no symptoms Respiratory: Reports: no symptoms Cardiovascular: Reports: no symptoms Gastrointestinal/Abdominal: Reports: no symptoms Allergies: Coded Allergies: PENICILLINS (Verified Allergy, Unknown, 01/30/17) Objective Last 24 Hour Vital Signs Date Time Temp Pulse Resp B/P Pulse Ox O2 Delivery O2 Flow Rate FiO2 02/02/17 07:50 84 18 Room Air 21 02/02/17 04:00 98.1 72 18 13/89 96 Room Air 02/02/17 00:38 97.5 72 19 136/81 99 Room Air 02/01/17 20:00 97.9 83 18 125/79 98 Room Air 02/01/17 19:22 85 18 Room Air 21 02/01/17 16:26 97.9 79 18 134/88 98 Room Air 02/01/17 16:17 105 20 100 Room Air 02/01/17 16:07 91 18 98 Room Air 21 02/01/17 12:00 97.5 87 18 127/92 98 Room Air Intake and Output 02/01/17 02/02/17 19:00 07:00 Intake Total 720 ml 240 ml Output Total 1200 ml 950 ml Balance -480 ml -710 ml Intake Oral 720 ml 240 ml Output Urine Total 1200 ml 950 ml # Voids 2 # Bowel Movements 1 General Appearance: no acute distress HEENT: normocephalic Respiratory/Chest: chest wall non-tender, lungs clear Cardiovascular: normal peripheral pulses Abdomen: normal bowel sounds, soft, non tender Microbiology Date/Time Source Procedure Growth Status 01/31/17 04:03 Blood Blood Culture - Preliminary NO GROWTH AFTER 48 HOURS Resulted 01/31/17 03:40 Blood Blood Culture - Preliminary NO GROWTH AFTER 48 HOURS Resulted Current Medications Medications (Trade) Dose Ordered Sig/Pedro Luis Route PRN Reason Start Time Stop Time Status Last Admin Dose Admin Acetaminophen (Tylenol) 650 mg Q4H PRN RECTAL T>100.5 01/31/17 11:00 03/02/17 10:59 Acetaminophen/ Hydrocodone Bitart 1 tab 1 tab Q4H PRN ORAL Moderate Pain (Pain Scale 4-6) 01/31/17 11:00 02/07/17 10:59 Albuterol/ Ipratropium (DuoNeb 0.5-3(2.5)mg/3ml) 3 ml Q4H PRN HHN Shortness of Breath 01/31/17 11:00 02/05/17 10:59 02/01/17 16:07 Aripiprazole (Abilify) 15 mg DAILY ORAL 01/31/17 12:00 03/02/17 11:59 02/02/17 08:29 Azithromycin/ Dextrose (Zithromax/D5W) 275 ml @ 275 mls/hr Q24HRS IV 02/01/17 06:00 02/07/17 06:59 02/02/17 05:28 Ceftriaxone Sodium 1 gm/ Dextrose 55 ml @ 110 mls/hr Q24H IVPB 02/01/17 06:00 02/08/17 05:59 02/02/17 05:28 Dextrose (Dextrose 50%) STAT PRN IV Hypoglycemia 01/31/17 11:00 03/02/17 10:59 Heparin Sodium (Porcine) (Heparin 5000 units/ml) 5,000 units EVERY 12 HOURS SUBQ 01/31/17 21:00 03/02/17 20:59 02/02/17 08:38 Hydrochlorothiazide (Hydrodiuril) 12.5 mg DAILY ORAL 01/31/17 11:00 03/02/17 10:59 02/02/17 08:30 Lorazepam (Ativan) 1 mg Q4H PRN ORAL For Anxiety 01/31/17 11:00 02/07/17 10:59 02/01/17 01:38 Morphine Sulfate (Morphine Sulfate) 2 mg Q4H PRN IVP Severe Pain (Pain Scale 7-10) 01/31/17 11:00 02/07/17 10:59 02/01/17 21:15 Ondansetron HCl (Zofran) 4 mg Q6H PRN IVP Nausea & Vomiting 01/31/17 11:00 03/02/17 10:59 Sertraline HCl (Zoloft) 50 mg DAILY ORAL 01/31/17 11:00 03/02/17 10:59 02/02/17 08:30 Jonny Lovelace MD Feb 02, 2017 08:43
[2017-02-02 12:36] VITALS: BP 142/85
--- NOTE | 2017-02-02 15:31 | Nephrology Progress Note ---
Assessment/Plan Problem List: (1) Vomiting (2) CAP (community acquired pneumonia) (3) HTN (hypertension) Plan Stable lytes Stable VS Smoking cessation dc pt home today d/w Dr Drake, ordered levaquin 500mg po x7 days only Subjective Constitutional: Denies: chills, diaphoresis, fever, malaise, no symptoms, other , weakness HEENT: Denies: blurred vision, double vision, ear discharge, ear pain, eye pain , mouth pain, mouth swelling, no symptoms, nose congestion, nose pain, other, tearing, throat pain, throat swelling Genitourinary: Denies: burning, discharge, flank pain, frequency, hematuria, incontinence, no symptoms, other, pain, urgency Neurologic/Psychiatric: Denies: anxiety, depressed, emotional problems, headache, no symptoms, numbness, other, paresthesia, pre-existing deficit, seizure, tingling, tremors, weakness Objective Objective Last 24 Hour Vital Signs Date Time Temp Pulse Resp B/P Pulse Ox O2 Delivery O2 Flow Rate FiO2 02/02/17 12:36 98.1 73 20 142/85 97 Room Air 02/02/17 08:00 98.0 73 20 130/78 95 Room Air 02/02/17 07:50 84 18 Room Air 21 02/02/17 04:00 98.1 72 18 13/89 96 Room Air 02/02/17 00:38 97.5 72 19 136/81 99 Room Air 02/01/17 20:00 97.9 83 18 125/79 98 Room Air 02/01/17 19:22 85 18 Room Air 21 02/01/17 16:26 97.9 79 18 134/88 98 Room Air 02/01/17 16:17 105 20 100 Room Air 02/01/17 16:07 91 18 98 Room Air 21 Intake and Output 02/01/17 02/02/17 19:00 07:00 Intake Total 720 ml 240 ml Output Total 1200 ml 950 ml Balance -480 ml -710 ml Intake Oral 720 ml 240 ml Output Urine Total 1200 ml 950 ml # Voids 2 # Bowel Movements 1 Height (Feet): 5 Height (Inches): 11.00 Weight (Pounds): 175 General Appearance: no apparent distress EENT: normal ENT inspection Neck: normal alignment, normal inspection Cardiovascular: normal rate, regular rhythm, no JVD Respiratory/Chest: normal breath sounds, no respiratory distress Abdomen: non tender, soft, no organomegaly, no mass Extremities: non-tender, normal inspection, no calf tenderness Neurologic: alert, oriented x 3, responsive, normal mood/affect Jania Ash N.P. Feb 02, 2017 15:31
--- NOTE | 2017-02-02 15:53 | Infectious Diseases Prog Note ---
Assessment/Plan Problems: (1) CAP (community acquired pneumonia) Assessment & Plan: improved on ceftriaxon and zithromax, may switch to oral levaquin to finish 7 days total of treatment, avoid smoking (2) UTI (urinary tract infection) Assessment & Plan: improved on ceftriaxon, no urine culture was done (3) COPD (chronic obstructive pulmonary disease) with acute bronchitis Assessment & Plan: due to chronic smoking, recommend smoking cessation and nebulizer treatment , and PFT as an outpatient Subjective Constitutional: Denies: anorexia, chills, drenching sweats, fatigue, fever, no symptoms, other HEENT: Denies: congestion, coryza, dysphagia, hearing change, no symptoms, other, visual change Respiratory: Denies: dry cough, no symptoms, other, productive cough, shortness of breath Breasts: Denies: discharge, no symptoms, other, swelling, tenderness Cardiovascular: Denies: chest pain, dyspnea on exertion, no symptoms, other, palpitations Gastrointestinal/Abdominal: Denies: bloating, blood in stool, constipation, diarrhea, nausea, no symptoms, other, vomiting Genitourinary: Denies: dysuria, frequency, hematuria, no symptoms, nocturia, other Neurologic: Denies: confusion, headache, no symptoms, numbness, other, weakness Psychiatric: Denies: anxiety, depression, no symptoms, other Skin: Denies: no symptoms, other, rash, ulcer Endocrine: Denies: feels cold, feels warm, no symptoms, other Hematologic: Denies: bleeding, no symptoms, other, swollen lymph nodes Allergies: Coded Allergies: PENICILLINS (Verified Allergy, Unknown, 01/30/17) Objective Vital Signs Last 24 Hour Vital Signs Date Time Temp Pulse Resp B/P Pulse Ox O2 Delivery O2 Flow Rate FiO2 02/02/17 12:36 98.1 73 20 142/85 97 Room Air 02/02/17 08:00 98.0 73 20 130/78 95 Room Air 02/02/17 07:50 84 18 Room Air 02/02/17 04:00 98.1 72 18 13/89 96 Room Air 02/02/17 00:38 97.5 72 19 136/81 99 Room Air 02/01/17 20:00 97.9 83 18 125/79 98 Room Air 02/01/17 19:22 85 18 Room Air 02/01/17 16:26 97.9 79 18 134/88 98 Room Air 02/01/17 16:17 105 20 100 Room Air 02/01/17 16:07 91 18 98 Room Air 21 Height (Feet): 5 Height (Inches): 11.00 Weight (Pounds): 175 General Appearance: WD/WN, no acute distress HEENT: normocephalic, atraumatic, anicteric, mucous membranes moist Respiratory/Chest: chest wall non-tender, normal breath sounds, no respiratory distress, no accessory muscle use, decreased breath sounds Cardiovascular: normal peripheral pulses, normal rate, regular rhythm, no JVD Abdomen: normal bowel sounds, soft, non tender, no organomegaly, non distended , no mass Extremities: no cyanosis, no clubbing Microbiology Date/Time Source Procedure Growth Status 01/31/17 04:03 Blood Blood Culture - Preliminary NO GROWTH AFTER 48 HOURS Resulted 01/31/17 03:40 Blood Blood Culture - Preliminary NO GROWTH AFTER 48 HOURS Resulted Current Medications Medications (Trade) Dose Ordered Sig/Pedro Luis Route PRN Reason Start Time Stop Time Status Last Admin Dose Admin Acetaminophen (Tylenol) 650 mg Q4H PRN RECTAL T>100.5 01/31/17 11:00 03/02/17 10:59 Acetaminophen/ Hydrocodone Bitart 1 tab 1 tab Q4H PRN ORAL Moderate Pain (Pain Scale 4-6) 01/31/17 11:00 02/07/17 10:59 Albuterol/ Ipratropium (DuoNeb 0.5-3(2.5)mg/3ml) 3 ml Q4H PRN HHN Shortness of Breath 01/31/17 11:00 02/05/17 10:59 02/01/17 16:07 Aripiprazole (Abilify) 15 mg DAILY ORAL 01/31/17 12:00 03/02/17 11:59 02/02/17 08:29 Azithromycin/ Dextrose (Zithromax/D5W) 275 ml @ 275 mls/hr Q24HRS IV 02/01/17 06:00 02/07/17 06:59 02/02/17 05:28 Ceftriaxone Sodium 1 gm/ Dextrose 55 ml @ 110 mls/hr Q24H IVPB 02/01/17 06:00 02/08/17 05:59 02/02/17 05:28 Dextrose (Dextrose 50%) STAT PRN IV Hypoglycemia 01/31/17 11:00 03/02/17 10:59 Heparin Sodium (Porcine) (Heparin 5000 units/ml) 5,000 units EVERY 12 HOURS SUBQ 01/31/17 21:00 03/02/17 20:59 02/02/17 08:38 Hydrochlorothiazide (Hydrodiuril) 12.5 mg DAILY ORAL 01/31/17 11:00 03/02/17 10:59 02/02/17 08:30 Lorazepam (Ativan) 1 mg Q4H PRN ORAL For Anxiety 01/31/17 11:00 02/07/17 10:59 02/01/17 01:38 Morphine Sulfate (Morphine Sulfate) 2 mg Q4H PRN IVP Severe Pain (Pain Scale 7-10) 01/31/17 11:00 02/07/17 10:59 02/01/17 21:15 Ondansetron HCl (Zofran) 4 mg Q6H PRN IVP Nausea & Vomiting 01/31/17 11:00 03/02/17 10:59 Sertraline HCl (Zoloft) 50 mg DAILY ORAL 01/31/17 11:00 03/02/17 10:59 02/02/17 08:30 Iliana Drake M.D. Feb 02, 2017 15:53
[2017-02-02 16:24] VITALS: BP 131/79
[2017-02-02] MEDS ORDERED: LEVAQUIN500 MG ORAL (16:28)
--- NOTE | 2017-02-03 10:18 | Discharge Summary ---
Discharge Summary Hospital Course Date of Admission Jan 31, 2017 at 05:04 Date of Discharge Feb 02, 2017 at 18:30 Admitting Diagnosis pneumonia HPI Conrado Cyr is a 56 year old male who was admitted on Jan 31, 2017 at 05:04 for Pneumonia Hospital Course dc summary #[id number] Discharge Medications Continued Medications: Levofloxacin* (Levaquin*) 500 Mg Tablet 500 MG ORAL DAILY for 7 Days, #7 TAB Discharge Condition Upon Discharge: stable Discharge Disposition Patient was discharged to Home (01) Discharge Diagnoses: Discharge Instructions Discharge Instructions Special Instructions I have been assigned to complete a D/C Summary on this account. I was not involved in the patient management Serenity Bro NP (Vanchtein) Feb 03, 2017 10:18
--- NOTE | 2017-02-03 11:36 | Cardiology Report ---
APPROVED REPORT EKG Measurement Heart [id number] Sinus tachycardia Otherwise normal ECG
--- NOTE | 2017-02-04 00:48 | Discharge Summary 2 SIG ---
DATE OF ADMISSION: 01/31/2017 DATE OF DISCHARGE: 02/02/2017 REASON FOR ADMISSION: 56-year-old male presented to emergency room with three days of vomiting. He denied hematemesis. The patient with a history of alcohol dependency, Earlier was drinking beer and whiskey. No fevers. No chills. Urinalysis with +1 leukocyte esterase. Serum alcohol level -62. Stable LFT. Troponin negative. Mild leukocytosis 11.2. Normal lipase. EKG showed normal sinus rhythm. No ischemic changes. Chest x-ray revealed no definite infiltrate or pulmonary vascular congestion. The patient with a history of chronic obstructive pulmonary disease. ADMITTING DIAGNOSES: 1. Possible community-acquired pneumonia. 2. Possible urinary tract infection. 3. Vomiting. 4. Chronic obstructive pulmonary disease. 5. Abdominal pain. 6. Hypertension. HOSPITAL STAY: The patient admitted to Med/Surg floor. Gentle IV fluids provided. Symptomatic treatment with antiemetics provided. The patient started on empiric antibiotic. Blood cultures were negative. Urine culture was never sent ( patient did not provide specimen). Supplemental oxygen and pulmonary toilet provided as needed. Pain management provided. DVT prophylaxis provided. Pulmonology consult was requested. Per Pulmonology, no acute pulmonological issues. Chest x-ray did not show any evidence of pneumonia. The patient also had no evidence of chronic obstructive pulmonary disease exacerbation. Per telephone answering service operator, vomiting was likely secondary to gastritis due to ETOH abuse. The patient was improving clinically. No nausea. vomiting, no abdominal pain. Able to tolerate diet. Leukocytosis resolved. Stable labs. Blood pressure was stable with current regimen. The patient was stable for discharge. DISCHARGE DIAGNOSES: 1. Alcohol intoxication. 2. Likely alcoholic gastritis. 3. Possible urinary tract infection. 4. Chronic obstructive pulmonary disease. 5. Abdominal pain, likely secondary to gastritis. 6. Hypertension. DISCHARGE MEDICATIONS: See medication reconciliation list. DISCHARGE INSTRUCTIONS: The patient discharged home to follow up with the primary medical doctor. Strongly advised on abstinence from alcohol. Meet Yusuf M.D. I have been assigned to dictate discharge summary on this account and I was not involved in the patient's management. Serenity Bro N.P. (Vanchtein) DR: LIZZY JOB#: [id number] CC: ANDREINA
== END 2017-02-02 18:30 | disposition home or self-care (01) | DRG 241 ==
LOC: EDBD 23:24 → EMR 23:55 → 3E 01-31 05:04 → EDBEDREQ 01-31 05:56 → 3E 01-31 07:53
DX: K29.20 Alcoholic gastritis without bleeding (principal); N39.0 Urinary tract infection, site not specified; I10 Essential (primary) hypertension; J44.9 Chronic obstructive pulmonary disease, unspecified; R11.10 Vomiting, unspecified; R10.9 Unspecified abdominal pain; F10.129 Alcohol abuse with intoxication, unspecified; Z88.0 Allergy status to penicillin
CPT/HCPCS: 36415; 71010; 74000; 80048; 80053; 80329; 81003; 83605; 83690; 84484; 85025; 85610; 85730; 87040; 87493; 93005; 94640; 94664; J2405; J7620